=== PATIENT | female | born 1985 | race Caucasian/White ===

== ENCOUNTER 2018-05-08 19:25 | Emergency (ER) | payer OTHER ==
[2018-05-08] MEDS: ONDANSETRON 4 MG INJ IV (20:53)
[2018-05-08] MEDS: SOD CHLORIDE 0.9% 1,000 ML IV (20:53)
[2018-05-08] MEDS: ACETAMINOPHEN 500 MG TAB PO (20:54)
[2018-05-08] MEDS: KETOROLAC 15 MG INJ IV (20:54)
[2018-05-08 21:01] LABS: ADD MAN DIFF? NO
[2018-05-08 21:04] LABS: BASOPHILS % 0.2 % (0.0-2.0); EOSINOPHILS % 0.2 % (0.0-7.0); HEMATOCRIT 40.3 % (37.0-47.0); HEMOGLOBIN 12.4 g/dl (12.0-16.0); LYMPHOCYTES # 1.6 10^3/ul (0.8-2.9); LYMPHOCYTES % 14.3 % (15.0-51.0); MEAN CORPUSCULAR HEMOGLOBIN 24.5 pg (29.0-33.0); MEAN CORPUSCULAR HGB CONC 30.8 g/dl (32.0-37.0); MEAN CORPUSCULAR VOLUME 79.5 fl (82.0-101.0); MEAN PLATELET VOLUME 11.4 fl (7.4-10.4); MONOCYTE # 0.9 10^3/ul (0.3-0.9); MONOCYTES % 8.4 % (0.0-11.0); NEUTROPHIL # 8.3 10^3/ul (1.6-7.5); NEUTROPHILS % 76.7 % (39.0-77.0); PLATELET COUNT 226 10^3/UL (140-415); RED BLOOD COUNT 5.07 10^6/ul (4.20-5.40); RED CELL DISTRIBUTION WIDTH 13.8 % (11.5-14.5)
[2018-05-08 21:04] LABS: WHITE BLOOD COUNT 10.8 10^3/ul (4.8-10.8)
[2018-05-08 21:08] LABS: ADD UMIC YES; UR ASCORBIC ACID NEGATIVE (NEGATIVE); UR BACTERIA FEW /HPF (NONE SEEN); UR BILIRUBIN (Dip) NEGATIVE (NEGATIVE); UR BLOOD (Dip) 1+ mg/dL (NEGATIVE); UR CLARITY SLIGHTLY CLOUDY (CLEAR); UR COLOR YELLOW (YELLOW); UR GLUCOSE (Dip) NEGATIVE (NEGATIVE); UR KETONES (Dip) NEGATIVE (NEGATIVE); UR LEUKOCYTE ESTERASE (Dip) 3+ Leu/ul (NEGATIVE); UR NITRITE (Dip) NEGATIVE (NEGATIVE); UR RBC 16 /HPF (0-5); UR SPECIFIC GRAVITY (Dip) 1.021 (1.003-1.030); UR SQUAMOUS EPITHELIAL CELL FEW /HPF (FEW); UR TOTAL PROTEIN (Dip) NEGATIVE (NEGATIVE); UR UROBILINOGEN (Dip) 1+ mg/dL (NEGATIVE); UR WBC > 182 /HPF (0-5)
[2018-05-08 21:19] LABS: ALANINE AMINOTRANSFERASE 69 IU/L (13-69); ALBUMIN 4.5 g/dl (3.3-4.9); ALBUMIN/GLOBULIN RATIO 1.32; ALKALINE PHOSPHATASE 95 IU/L (42-121); ANION GAP 10 (5-13); ASPARTATE AMINO TRANSFERASE 94 IU/L (15-46); BILIRUBIN,INDIRECT 0.4 mg/dl (0-1.1); BILIRUBIN,TOTAL 0.4 mg/dl (0.2-1.3); BLOOD UREA NITROGEN 13 mg/dl (7-20); CALCIUM 9.4 mg/dl (8.4-10.2); CARBON DIOXIDE 30 mmol/L (21-31); CHLORIDE 103 mmol/L (97-110); CREATININE 0.94 mg/dl (0.44-1.00); Estimated GFR > 60 mL/min (>60); GLUCOSE 106 mg/dl (70-220); LIPASE 97 U/L (23-300); POTASSIUM 3.5 mmol/L (3.5-5.1); SODIUM 143 mmol/L (135-144); TOTAL PROTEIN 7.9 g/dl (6.1-8.1)
[2018-05-08] MEDS: CEFTRIAXONE 1 GM/50 ML (PMX) 50 ML IVPB (22:16)
== END 2018-05-08 23:12 | disposition home or self-care (01) ==
LOC: FTE 19:25
DX: N12 Tubulo-interstitial nephritis, not specified as acute or chronic (principal)
CPT/HCPCS: 36415; 74176; 80053; 81001; 81025; 83690; 85025; 96374; 96375; 99285-25

== ENCOUNTER 2019-01-27 09:47 | Inpatient (IN) | payer OTHER ==
[2019-01-27] MEDS ORDERED: MINERAL OIL LIGHT 10 ML VIAL TOP (10:00)
[2019-01-27] MEDS ORDERED: IBUPROFEN 600 MG TAB PO (10:00)
[2019-01-27] MEDS ORDERED: METHYLERGONOVINE 0.2 MG INJ IM ×2 (10:00→23:00)
[2019-01-27] MEDS ORDERED: MISOPROSTOL 200 MCG TAB PR ×2 (10:00→23:00)
[2019-01-27] MEDS ORDERED: CARBOPROST 250 MCG INJ IM ×2 (10:00→23:00)
[2019-01-27] MEDS ORDERED: OXYTOCIN 30 UNITS/LR 500 ML IV ×3 (10:00→23:00)
[2019-01-27] MEDS ORDERED: LIDOCAINE 1% (MPF) 30 ML INJ INJ (10:00)
[2019-01-27] MEDS: LACTATED RINGER'S 1,000 ML IV ×2 (11:40→18:13)
[2019-01-27 12:09] LABS: ADD MAN DIFF? NO
[2019-01-27 12:14] LABS: BASOPHILS % 0.3 % (0.0-2.0); EOSINOPHILS # 0.1 10^3/ul (0.0-0.5); EOSINOPHILS % 0.6 % (0.0-7.0); HEMOGLOBIN 10.3 g/dl (12.0-16.0); LYMPHOCYTES # 1.2 10^3/ul (0.8-2.9); LYMPHOCYTES % 14.7 % (15.0-51.0); MEAN CORPUSCULAR HEMOGLOBIN 24.5 pg (29.0-33.0); MEAN CORPUSCULAR HGB CONC 31.2 g/dl (32.0-37.0); MEAN CORPUSCULAR VOLUME 78.4 fl (82.0-101.0); MEAN PLATELET VOLUME 11.5 fl (7.4-10.4); MONOCYTE # 0.7 10^3/ul (0.3-0.9); MONOCYTES % 8.4 % (0.0-11.0); NEUTROPHIL # 5.9 10^3/ul (1.6-7.5); NEUTROPHILS % 75.5 % (39.0-77.0); PLATELET COUNT 237 10^3/UL (140-415); RED BLOOD COUNT 4.21 10^6/ul (4.20-5.40)
[2019-01-27 12:14] LABS: WHITE BLOOD COUNT 7.9 10^3/ul (4.8-10.8)
[2019-01-27 12:19] LABS: ADD UMIC YES; UR ASCORBIC ACID NEGATIVE (NEGATIVE); UR BACTERIA FEW /HPF (NONE SEEN); UR BILIRUBIN (Dip) NEGATIVE (NEGATIVE); UR BLOOD (Dip) NEGATIVE (NEGATIVE); UR CLARITY CLOUDY (CLEAR); UR COLOR YELLOW (YELLOW); UR GLUCOSE (Dip) NEGATIVE (NEGATIVE); UR KETONES (Dip) NEGATIVE (NEGATIVE); UR LEUKOCYTE ESTERASE (Dip) 3+ Leu/ul (NEGATIVE); UR NITRITE (Dip) NEGATIVE (NEGATIVE); UR RBC 5 /HPF (0-5); UR SPECIFIC GRAVITY (Dip) 1.009 (1.003-1.030); UR SQUAMOUS EPITHELIAL CELL MANY /HPF (FEW); UR TOTAL PROTEIN (Dip) NEGATIVE (NEGATIVE); UR UROBILINOGEN (Dip) NEGATIVE (NEGATIVE); UR WBC 22 /HPF (0-5)
[2019-01-27 12:34] LABS: INR 0.96; PARTIAL THROMBOPLASTIN TIME 26.9 Sec (23.0-35.0); PROTIME 12.9 Sec (11.9-14.9)
[2019-01-27] MEDS: MISOPROSTOL 50 MCG CAPSULE VAG ×2 (13:01→17:00)
[2019-01-27 13:06] LABS: HEPATITIS B SURFACE ANTIGEN NEGATIVE (NEGATIVE)
[2019-01-27 16:49] LABS: RAPID PLASMA REAGIN NONREACTIVE (NR)
[2019-01-27] MEDS ORDERED: ONDANSETRON 4 MG INJ (18:46)
[2019-01-27] MEDS ORDERED: OXYTOCIN 10 UNIT INJ (18:46)
[2019-01-27] MEDS ORDERED: morphine SULFATE/PF (10 MG/10 ML) INJ (18:46)
[2019-01-27] MEDS ORDERED: OXYTOCIN 30 UNITS/LR 500 ML BAG IV (19:00)
[2019-01-27] MEDS: CEFAZOLIN 2 GM/50 ML (PMX) 50 ML IVPB (19:04)
[2019-01-27] MEDS ORDERED: PHENYLephrine 10 MG INJ (19:06)
[2019-01-27] MEDS ORDERED: NALOXONE (0.4 MG/ML) INJ IV (20:30)
[2019-01-27] MEDS ORDERED: ONDANSETRON 4 MG INJ IV (20:30)
[2019-01-27] MEDS ORDERED: morphine 2 MG INJ IV (20:30)
[2019-01-27] MEDS: DIPHENHYDRAMINE 50 MG INJ IV (21:29)
[2019-01-27] MEDS: KETOROLAC 30 MG INJ IV (21:29)
[2019-01-27] MEDS: OXYTOCIN 30 UNITS/LR 500 ML IV ×2 (21:30→21:47)
[2019-01-27] MEDS ORDERED: OXYCODONE/ACETAMINOPHEN (5/325) TAB PO (23:00)
[2019-01-27] MEDS ORDERED: HYDROCODONE/APAP (5/325) TAB PO (23:00)
[2019-01-27] MEDS ORDERED: LANOLIN HPA 1 PKT TOP (23:00)
[2019-01-27] MEDS ORDERED: NA PHOSPHATE/BIPHOS 133 ML ENEMA PR (23:00)
[2019-01-27] MEDS: ACETAMINOPHEN 500 MG TAB PO (23:16)
[2019-01-27] MEDS: AZITHROMYCIN 500MG/NS (PMX) 250 ML IVPB (23:51)
[2019-01-28] MEDS: CLINDAMYCIN 300 MG CAP PO ×5 (00:06→23:59)
[2019-01-28] MEDS: CEFAZOLIN 2 GM/50 ML (PMX) 50 ML IVPB ×3 (01:06→14:51)
[2019-01-28] MEDS: LACTATED RINGER'S 1,000 ML IV (02:20)
[2019-01-28 05:22] LABS: ADD MAN DIFF? NO
[2019-01-28 05:26] LABS: BASOPHILS % 0.2 % (0.0-2.0); EOSINOPHILS # 0.1 10^3/ul (0.0-0.5); EOSINOPHILS % 0.5 % (0.0-7.0); HEMATOCRIT 28.2 % (37.0-47.0); HEMOGLOBIN 8.6 g/dl (12.0-16.0); LYMPHOCYTES # 1.7 10^3/ul (0.8-2.9); MEAN CORPUSCULAR HEMOGLOBIN 24.4 pg (29.0-33.0); MEAN CORPUSCULAR HGB CONC 30.5 g/dl (32.0-37.0); MEAN CORPUSCULAR VOLUME 80.1 fl (82.0-101.0); MEAN PLATELET VOLUME 10.7 fl (7.4-10.4); MONOCYTE # 0.7 10^3/ul (0.3-0.9); MONOCYTES % 6.1 % (0.0-11.0); NEUTROPHIL # 8.9 10^3/ul (1.6-7.5); NEUTROPHILS % 77.6 % (39.0-77.0); PLATELET COUNT 171 10^3/UL (140-415); RED BLOOD COUNT 3.52 10^6/ul (4.20-5.40); RED CELL DISTRIBUTION WIDTH 13.7 % (11.5-14.5)
[2019-01-28 05:26] LABS: WHITE BLOOD COUNT 11.5 10^3/ul (4.8-10.8)
[2019-01-28] MEDS: KETOROLAC 30 MG INJ IV ×2 (05:47→14:51)
[2019-01-28] MEDS: DIPHENHYDRAMINE 50 MG INJ IV (07:47)
[2019-01-28] MEDS: SENNA/DOCUSATE NA (8.6MG/50MG) TAB PO ×2 (09:50→22:03)
[2019-01-28] MEDS: BISACODYL 10 MG SUPP PR (12:22)
[2019-01-28] MEDS: IBUPROFEN 800 MG TAB PO (22:03)
[2019-01-29] MEDS: CLINDAMYCIN 300 MG CAP PO ×4 (05:52→23:42)
[2019-01-29] MEDS: IBUPROFEN 800 MG TAB PO ×3 (05:52→21:38)
[2019-01-29] MEDS: SENNA/DOCUSATE NA (8.6MG/50MG) TAB PO ×2 (08:59→21:38)
[2019-01-30] MEDS ORDERED: ACETAMINOPHEN 325 MG TAB PO (00:30)
[2019-01-30] MEDS: CLINDAMYCIN 300 MG CAP PO ×2 (05:36→12:02)
[2019-01-30] MEDS: IBUPROFEN 800 MG TAB PO ×2 (05:36→14:52)
[2019-01-30] MEDS: SENNA/DOCUSATE NA (8.6MG/50MG) TAB PO (10:03)
[2019-01-30] MEDS: DIPHTH/TET/ACEL PERTUSS (ADULT) 0.5 ML VIAL IM* (10:05)
[2019-01-30] MEDS: MEASLES,MUMPS,RUBELLA VACCINE INJ SC* (10:06)
== END 2019-01-30 17:45 | disposition home or self-care (01) | DRG 785 ==
LOC: L-D 09:47 → MS1 22:33
PROVIDERS: Obstetrics & Gynecology
PROC: 10D00Z1 Extraction of Products of Conception, Low, Open Approach (ICD-10-PCS; principal; 2019-01-27)
PROC: 0UB70ZZ Excision of Bilateral Fallopian Tubes, Open Approach (ICD-10-PCS; 2019-01-27)
DX: O36.63X0 Maternal care for excessive fetal growth, third trimester, not applicable or unspecified (principal); O99.214 Obesity complicating childbirth; E66.9 Obesity, unspecified; Z3A.39 39 weeks gestation of pregnancy; Z37.0 Single live birth; Z30.2 Encounter for sterilization; Z23 Encounter for immunization
CPT/HCPCS: 76815; 81001; 85025; 85610; 85730; 86592; 86850; 86900; 86901; 87086; 87340; 88302; 90715; 99464